=== PATIENT | male | born 1975 | race Caucasian/White ===

== ENCOUNTER 2019-01-01 00:15 | Emergency (ER) | payer OTHER ==
[~2019-01-01] VITALS: Ht 182.9 cm; Wt 113.0 kg
[2019-01-01] MEDS ORDERED: TETanus/Pertussis (Acell)/Diphther VAC/PF (Tdap-Adult) 0.5ml syringe IM ONE (01:00)
[2019-01-01 01:14] VITALS: BP 159/104
== END 2019-01-01 01:16 ==
LOC: ER 00:16
DX: S00.211A Abrasion of right eyelid and periocular area, initial encounter (principal); H11.31 Conjunctival hemorrhage, right eye; F10.920 Alcohol use, unspecified with intoxication, uncomplicated; V59.49XA Driver of pick-up truck or van injured in collision with other motor vehicles in traffic accident, initial encounter; Y93.89 Activity, other specified; Y92.411 Interstate highway as the place of occurrence of the external cause; Y99.8 Other external cause status
CPT/HCPCS: 90471; 99283; 99284